=== PATIENT | male | born 1985 | race Caucasian/White ===

== ENCOUNTER 2022-05-06 17:16 | Emergency (ER) | payer MEDICARE, MEDICAID, SELFPAY ==
[2022-05-06 17:26] VITALS: BP 148/91; BP 155/83; PULSE 80; PULSE 81; RESP 20; TEMP 37.1; O2SAT 96; O2SAT 97; BMI 29.8
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
--- NOTE | 2022-05-06 18:26 | PHA.MEDREC ---
Pharmacy Consult ? Medication Reconciliation Pharmacy has completed the medication reconciliation. Pt able to clarify divalproex dosing; list at bedside but seems to be outdated vs claim history and pt knowledge.
[2022-05-06 19:34] LABS: MANUAL DIFF FLAG NO
[2022-05-06 19:35] LABS: Basophils Percent Auto 0.4 % (0-2); Eosinophils Absolute Auto 0.1 X10*3/uL (0.0-0.4); Hematocrit 41.3 % (42.0-52.0); Hemoglobin 14.1 g/dl (14.0-18.0); Imm Gran Abs Auto 0.03 X10*3/uL (0.00-0.03); Imm Gran Pct Auto 0.5 % (0.0-0.4); Lymphocytes Absolute Auto 1.8 X10*3/uL (1.2-4.9); Lymphocytes Percent Auto 33.2 % (20-40); Mean Corpuscular HGB Conc 34.1 g/dl (31.0-36.0); Mean Corpuscular Hemoglobin 31.5 pg (27.0-33.0); Mean Corpuscular Volume 92.4 fL (80.0-98.0); Mean Platelet Volume 10.1 fL (9.4-12.4); Monocytes Absolute Auto 0.6 X10*3/uL (0.1-1.2); Monocytes Percent Auto 11.2 % (2-11); Neutrophils Absolute Auto 2.9 x10*3/uL (2.0-8.3); Neutrophils Percent Auto 52.7 % (45-73); Platelet Count 167 X10*3/uL (160-400); Red Blood Count 4.47 X10*6/uL (4.60-5.80); Red Cell Distribution Width 11.9 % (11.0-16.0); White Blood Count 5.5 X10*3/uL (4.8-10.8)
[2022-05-06 19:41] LABS: Appearance Urine CLEAR; Color Urine YELLOW; Glucose Urine UA NEG (NEG); Leukocyte Esterase Urine NEG (NEG); Nitrite Urine NEG (NEG); Specific Gravity - Urine 1.015 (1.005-1.025); UACC Culture Trigger NO; Urine Blood TRACE (NEG); Urine Ketones NEG (NEG); Urine Protein NEG (NEG-TRACE)
[2022-05-06 19:53] LABS: Bacteria Urine TRACE /LPF; RBC Urine 0-2 /HPF (0); WBC Urine 0 /HPF (0-4)
[2022-05-06 19:58] LABS: Alanine Aminotransferase 60 U/L (0-40); Albumin Level 4.4 g/dL (3.5-5.0); Alkaline Phosphatase 54 U/L (39-117); Anion Gap 15 (12-20); Aspartate Amino Transferase 50 U/L (5-37); Bilirubin Total < 0.2 mg/dL (0.0-1.0); Blood Urea Nitrogen 12 mg/dL (9-16); Calcium 9.6 mg/dL (8.4-10.2); Carbon Dioxide 25 mmol/L (22-29); Chloride 105 mmol/L (96-108); Creatinine Clr Calc Pharmacy 158.6; Estimated Glomerular Filt Rate > 60; Ethanol < 10 mg/dL; Glucose Random 112 mg/dL (60-115); Potassium 4.7 mmol/L (3.3-5.1); Sodium 140 mmol/L (135-145); Total Protein 7.4 g/dL (6.5-8.0)
[2022-05-06 20:03] LABS: Amphetamine Screen Urine Not Detected (Not Detect); Barbiturates, Urine Not Detected (Not Detect); Benzodiazepines Screen Urine Not Detected (Not Detect); Cannabinoid Screen Urine Not Detected (Not Detect); Cocaine Screen Urine Not Detected (Not Detect); Fentanyl, urine Not Detected (Not Detect); Opiate Screen Urine Not Detected (Not Detect); Phencyclidine Screen Urine Not Detected (Not Detect)
[2022-05-06 20:06] LABS: COVID-19 Test Negative (Negative)
[2022-05-06 21:59] VITALS: BP 113/75; PULSE 74; RESP 16; TEMP 36.7; O2SAT 96
--- NOTE | 2022-05-07 01:02 | PC.NURSE ---
KIANAN @ bedside for eval.
[2022-05-07] MEDS: Omeprazole 20 MG CAPSULE.DR PO (05:57)
[2022-05-07 06:01] VITALS: BP 114/71; PULSE 68; RESP 18; O2SAT 93
[2022-05-07] MEDS: Multivitamin TABLET 1 TAB PO (08:26)
[2022-05-07] MEDS: Divalproex Sodium 500 MG TABLET.DR PO (08:26)
[2022-05-07 08:31] VITALS: BP 140/98; PULSE 80; RESP 18; O2SAT 99
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
--- NOTE | 2022-05-07 09:06 | PC.NURSE ---
[facility] at bedside
[2022-05-07] MEDS: hydrOXYzine HCL 50 MG TABLET PO (09:25)
--- NOTE | 2022-05-07 11:36 | PC.NURSE ---
[facility] staff here to transport pt home however pt yelling, combative and aggressive to hospital staff demanding to receive mental health despite plan put in place by [facility]. Security staff, ed staff and house mover supervisor to bedside. Pt to be moved to POD
--- NOTE | 2022-05-07 11:58 | PC.NURSE ---
patient aunt/guardian called, she is working to have patient be moved from his current long term and would like to be contacted with any decisions regarding dispo for patient. her phone # is [phone]
[2022-05-07 12:10] VITALS: BP 115/81; PULSE 73; RESP 16; TEMP 36.4; O2SAT 97
[2022-05-07] MEDS: clonazePAM 0.5 MG TABLET PO ×2 (12:43→18:59)
--- NOTE | 2022-05-07 12:53 | MHC.CARE ---
CARE Team was informed Pt refused to be discharged with his long term staff after being assessed by [facility] Crisis. Pt became escalated and required staff redirection. Pt was brought back into the behavioral health pod. CARE Team and Pt processed the events in the main ED. Pt initially expressed frustration then was able to explain that he does not like were he currently resides and wants an alternative placement. CARE Team and Pt discussed the limitations of external DDS placements from the ED or inpatient psychiatric units. Pt was receptive to this information and reflective regarding the need to work with staff to achieve these goals. Pt notably made some proactive statements though when no reaction was given Pt continued to appropriately engage with t/w. CARE Team spoke with Carrie Esposito [facility] [phone] who received instructions by Rosemary Olsen [facility] area attendant to not allow Pt to return to the long term today. T/w informed her Pt is agreeable to return and was able to process events that occurred. Carrie continued to state that he is not able to return. Carrie expressed concerned regarding ongoing outpatient dynamics impacting Pt to return today; mother being sick and underlying mental health issues. [facility] is requesting a treatment meeting for the Pt with t/w. T/w declined for involvement due appropriateness to be able to participate in a ongoing way due to our role as a Crisis Team. CARE Team informed Carrie that a [facility] report will be filed at this time as Pt is medically and psychiatrically cleared for discharge. CARE Team informed DEANN Olmstead. Plan for Pt to board in the ED overnight as Pts long term is refusing to accept Pt today.
--- NOTE | 2022-05-07 13:16 | MHC.CARE ---
[facility] Report # [id number]
--- NOTE | 2022-05-07 15:59 | MHC.CARE ---
CARE team contacted [facility] to request a copy of crisis evaluation and mental status update.
[2022-05-07 19:00] VITALS: BP 136/84; PULSE 73; RESP 20; TEMP 36.1; O2SAT 99
[2022-05-07] MEDS: clonazePAM 1 MG TABLET PO (19:46)
[2022-05-07] MEDS: OLANZapine 10 MG TABLET PO (19:46)
[2022-05-07] MEDS: Divalproex Sodium 500 MG TABLET.DR 1000 MG PO (19:46)
[2022-05-07] MEDS: Acetaminophen 325 MG TABLET 650 MG PO (21:55)
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
[2022-05-08] MEDS: Omeprazole 20 MG CAPSULE.DR PO (07:12)
[2022-05-08 08:29] VITALS: BP 132/77; PULSE 76; RESP 16; O2SAT 97
[2022-05-08] MEDS: Divalproex Sodium 500 MG TABLET.DR PO (08:40)
[2022-05-08] MEDS: Multivitamin TABLET 1 TAB PO (08:40)
--- NOTE | 2022-05-08 09:07 | MHC.CARE ---
CARE Team spoke with Carrie Esposito from [facility] who will follow up with the CARE Team by early afternoon regarding plan for Pt. Carrie reported they are attempting to schedule a treatment meeting for today. Carrie will update CARE Team by early afternoon.
--- NOTE | 2022-05-08 10:43 | PC.NURSE ---
PT HAS BEEN CALM AND COOPERATIVE THIS MORNING, TOLERATED MORNING MEDICATIONS AND BREAKFAST
[2022-05-08 13:43] LABS: Ammonia 27 umol/L (13-55)
[2022-05-08 15:46] VITALS: BP 126/82; PULSE 76; RESP 18; TEMP 36.3; O2SAT 95
--- NOTE | 2022-05-08 16:35 | PC.NURSE ---
Patients prescriber Cassidy Berry, PASCUAL from [facility] reached out stating concern that she is concerned that if discharged the patient may harm himself or someone else. States the patient has been acting off his baseline recently. She asked if we can add a different medication to his medications. Dr. Grant and care team notified about the phone call from [facility].
--- NOTE | 2022-05-08 16:44 | MHC.CARE ---
Pt has been re-referred to [facility] for another crisis/level of care evaluation.
--- NOTE | 2022-05-08 18:47 | PC.NURSE ---
[facility] here to re-assess pt
[2022-05-08] MEDS: Divalproex Sodium 500 MG TABLET.DR 1000 MG PO (20:18)
[2022-05-09 05:56] VITALS: RESP 16
--- NOTE | 2022-05-09 07:25 | PC.NURSE ---
patient appears to remain asleep respirations are even and unlabored patient appears in no distress
[2022-05-09 07:49] VITALS: BP 118/76; PULSE 82; RESP 19; TEMP 36.2; O2SAT 96
[2022-05-09] MEDS: Omeprazole 20 MG CAPSULE.DR PO (08:46)
[2022-05-09] MEDS: Multivitamin TABLET 1 TAB PO (08:46)
[2022-05-09] MEDS: Divalproex Sodium 500 MG TABLET.DR PO (08:47)
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
[2022-05-09] MEDS: QUEtiapine Fumarate 50 MG TABLET PO ×3 (12:10→20:36)
--- NOTE | 2022-05-09 14:44 | PC.NURSE ---
Pt seen this day for individual OT tx this day. Pt presents with calm mood and receptive to engaging in conversation with this insurance writer. Pt is able to recall several healthy coping mechanisms with simple verbal prompt. He names taking a walk , coloring , puzzling , and talking to a counselor rather than escalating and/or acting out. Pt is provided with and receptive to sensory tool, coloring activity, and sticker puzzle. Pt independently engages in coloring activity at conclusion of OT session.
[2022-05-09] MEDS: OLANZapine 5 MG TABLET PO (20:36)
[2022-05-09] MEDS: hydrOXYzine HCL 50 MG TABLET PO (20:36)
[2022-05-09] MEDS: Divalproex Sodium 500 MG TABLET.DR 1000 MG PO (20:36)
[2022-05-10 06:25] VITALS: RESP 16
--- NOTE | 2022-05-10 07:12 | PC.NURSE ---
patient appears to remain at [facility] at present respirations ar eeven and unlabored patient appears in no distress
--- NOTE | 2022-05-10 07:23 | PC.NURSE ---
Patient slept through the night, no distress observed/reported, behavior non concerning at this time but unpredictable, disposition per N is DDS inpatientbed search, VSS, medication compliant, will continue to monitor.
[2022-05-10] MEDS: Multivitamin TABLET 1 TAB PO (08:19)
[2022-05-10] MEDS: Omeprazole 20 MG CAPSULE.DR PO (08:19)
[2022-05-10] MEDS: QUEtiapine Fumarate 50 MG TABLET PO ×2 (08:19→14:18)
[2022-05-10] MEDS: Divalproex Sodium 500 MG TABLET.DR PO (08:19)
[2022-05-10 11:19] VITALS: BP 103/55; PULSE 79; RESP 17; TEMP 36.6; O2SAT 95
== END 2022-05-10 14:52 ==
PROVIDERS: Physician Assistant; Social Worker; Emergency Provider Emergency Medicine Emergency Medical Services; PCP Internal Medicine
DX: F63.81 Intermittent explosive disorder (principal); F06.30 Mood disorder due to known physiological condition, unspecified; R45.6 Violent behavior; Z86.73 Personal history of transient ischemic attack (TIA), and cerebral infarction without residual deficits; Z20.822 Contact with and (suspected) exposure to COVID-19; Z72.89 Other problems related to lifestyle; Z79.899 Other long term (current) drug therapy
CPT/HCPCS: 36415; 80053; 80307; 81001; 82077; 82140; 85025; 87635; 99285

== ENCOUNTER 2023-06-04 13:48 | Emergency (ER) | payer MEDICARE, MEDICAID, SELFPAY ==
--- NOTE | 2023-06-04 14:40 | ED_ITS ---
HPI - Allergic Reaction General Chief complaint: Allergic Reaction Stated complaint: BEE STING, EPI PEN ADMIN PER EMS Time Seen by Provider: 06/04/23 14:08 Source: patient and other Mode of arrival: EMS History of Present Illness HPI narrative: 38-year-old male was [facility] after he sustained a bee sting to his left pinky, the facility administered an EpiPen at 13:30, patient denies any complaints of shortness of breath/scratchy throat/lip or tongue swelling. Related Data Home Medications Medication Instructions Recorded Confirmed benzoyl peroxide 5 % topical gel 1 ea topical BID PRN Acne flare 05/06/22 05/06/22 (Acne Medication) divalproex 500 mg tablet,delayed 1 tab PO DAILY 05/06/22 05/06/22 release divalproex 500 mg tablet,delayed 2 tab PO BEDTIME 05/06/22 05/06/22 release hydroxyzine HCl 50 mg tablet 1 tab PO Q6H PRN Agitation 05/06/22 05/06/22 multivitamin (One Daily 1 tab PO DAILY 05/06/22 05/06/22 Multivitamin tablet) omeprazole 20 mg capsule,delayed 1 cap PO DAILY@0630 05/06/22 05/06/22 release Previous Rx's Medication Instructions Recorded epinephrine 0.3 mg/0.3 mL 0.3 mg (0.3 mL) IM Q4H PRN 06/04/23 injection, auto-injector (EpiPen anaphylaxis #2 ea 2-Titus) Allergies Allergy/AdvReac Type Severity Reaction Status Date / Time bee pollen [bee stings] AdvReac Hives Verified 05/07/22 13:43 Review of Systems Review of Systems: Pertinent positives and negatives as stated in HPI PMFSH Past Medical History Source: nursing notes reviewed Social History Social History Advance Directives: No Advance Directives Information Provided: No Physical Exam ED Vital Signs: Vital Signs - 24 hr 06/04/23 14:57 Temperature 98.6 F Pulse Rate 89 Respiratory Rate 18 Blood Pressure 146/84 H Pulse Oximetry 95 Oxygen Delivery Method Room Air BMI result Body Mass Index 40.6 VITAL SIGNS: Reviewed. GENERAL: Well developed, well nourished, in no acute distress. HEAD: Normocephalic/atraumatic EYES: PERRLA, EOMI EARS: Ext canals without abnormality NOSE: Nares patent bilateral OROPHARYNX: no oral lesions noted, posterior pharynx clear, no lip/tongue/facial swelling NECK: Supple, no adenopathy LUNGS: No stridor, no tachypnea, no wheeze/rhonchi/rales or increased work of breathing. CARDIOVASCULAR: Regular rate and rhythm without noted murmurs ABDOMEN: Soft, non-tender, non-distended with bowel sounds. MUSCULOSKELETAL: No tenderness, deformities, or effusions noted on gross inspection. EXTREMITIES: No cyanosis, clubbing or edema. SKIN: Inspection of the skin reveals no rashes NEUROLOGIC: Alert and oriented x 2. Strength and sensation to light touch were grossly intact x 4. Medications Administered Discontinued Medications Generic Name Dose Route Start Last Admin Trade Name Freq PRN Reason Stop Dose Admin Diphenhydramine HCl 25 mg 06/04/23 14:40 06/04/23 15:15 Diphenhydramine Hcl 25 Mg Capsule PO 06/04/23 14:41 25 mg ONCE ONE Administration Medical Decision Making Medical Decision Making MDM Narrative: This is a 38-year-old male who presents from a penitentiary after a bee sting to the left pinky with some mild erythema and swelling there is no evidence of anaphylaxis or angioedema, patient did receive an EpiPen at 13:30 and will be observed for 4 hours. The listed allergy to bee stings is hives. Patient will also receive additional 25 mg of Benadryl and be placed on cardiac monitoring. 1735: Patient remains without difficulty breathing, easy respirations, no angioedema or anaphylaxis and is otherwise discharged back to the penitentiary in stable condition. Differential Diagnosis Differential Diagnoses: The differential diagnosis associated with the presentation includes Please see the discussion above Admission/Observation Consideration of admission/observation: Escalation of care including admission/observation considered Please see the discussion above External Record Review External record reviewed: Outpatient record and Prior outpatient labs Critical Care Time Critical Care Time Critical Care Time: Yes Total Critical Care Time: 30 Attestation: I personally attest to this time spent taking care of the patient. Discharge Plan Discharge Clinical Impression: Accidental bee sting Patient Disposition: Xfer Other Instructions: Insect Bite or Sting (ED) Additional Instructions: 1. Resume all home medications as prescribed. 2. A replacement for your EpiPen has been ordered. Return to the ER for any worsening symptoms. Prescriptions: New epinephrine [EpiPen 2-Titus] 0.3 mg/0.3 mL auto-injector 0.3 mg IM Q4H PRN (Reason: anaphylaxis) Qty: 2 0RF No Action multivitamin [One Daily Multivitamin] Tablet 1 tab PO DAILY benzoyl peroxide [Acne Medication] 5 % gel 1 ea topical BID PRN (Reason: Acne flare) Rx Instructions: to face hydroxyzine HCl 50 mg tablet 1 tab PO Q6H PRN (Reason: Agitation) divalproex 500 mg tablet,delayed release (DR/EC) 1 tab PO DAILY divalproex 500 mg tablet,delayed release (DR/EC) 2 tab PO BEDTIME omeprazole 20 mg capsule,delayed release(DR/EC) 1 cap PO DAILY@0630 Referrals: Darien Beasley DO, MD [Primary Care Provider] -
[2023-06-04 14:57] VITALS: BP 146/84; BP 170/72; PULSE 89; PULSE 99; RESP 18; TEMP 37; O2SAT 95; O2SAT 99; BMI 40.6
[2023-06-04] MEDS: diphenhydrAMINE HCL 25 MG CAPSULE PO (15:15)
--- NOTE | 2023-06-04 19:55 | PC.NURSE ---
Patient is eating, talking and drinking with no signs of an exacerbation of allergic reaction. Patient c/o pain in ring finger on left hand where he was stung. looks totally normal not red or swollen. Discharged with store group manager.
== END 2023-06-04 20:14 | disposition other institution (70) ==
PROVIDERS: Emergency Provider Student in an Organized Health Care Education/Training Program; PCP Internal Medicine
DX: T63.441A Toxic effect of venom of bees, accidental (unintentional), initial encounter (principal); Y92.9 Unspecified place or not applicable; M79.642 Pain in left hand; Z79.899 Other long term (current) drug therapy
CPT/HCPCS: 99282; 99283

== ENCOUNTER 2024-02-06 17:14 | Emergency (ER) | payer OTHER, SELFPAY ==
--- NOTE | ~2024-02-06 | CT_ITS ---
EXAMINATION: CT HEAD WITHOUT CONTRAST CLINICAL INFORMATION: Reason for Exam altered mental status, remote hx of TBI COMPARISON: None available. TECHNIQUE: Contiguous axial imaging was performed from the skull base to vertex without intravenous administration of contrast. This CT examination was performed using dose optimization techniques as appropriate, variously including the following: *Automated exposure control *Adjustment of mA and/or kV according to patient size (this includes techniques or standardized protocols for targeted exams where dose is matched to indication/reason for exam; i.e. extremities or head) *Use of iterative reconstruction technique DLP: 735 mGy-cm FINDINGS: There is no evidence of acute intracranial hemorrhage or territorial infarction. No abnormal mass-effect or midline shift is seen. [place] to white matter differentiation is well preserved. No extra-axial fluid collections are identified. The ventricles are normal in size. There is no abnormal attenuation within the brain parenchyma. The osseous structures and soft tissues are normal. The mastoid air cells and visualized portions of the paranasal sinuses are well-aerated. CT/CT head/brain wo IV con IMPRESSION: No acute intracranial pathology.
--- NOTE | ~2024-02-06 | XR_ITS ---
EXAMINATION: XR FOOT, LEFT CLINICAL INFORMATION: Pain COMPARISON: None available. TECHNIQUE: AP, lateral, and oblique views of the left foot. FINDINGS: Partially visualized tibial intramedullary nail with distal screws and suspected healing fracture of the distal tibial shaft. There are fractures of the third through fifth metatarsal necks which are suspected to be subacute/healing as there is some surrounding calcification. Slightly displaced intra-articular fracture at the base to mid shaft of the first proximal phalanx, age-indeterminate. Articular alignment throughout the foot appears maintained. Mild degenerative change of the midfoot. Dorsal soft tissue swelling is noted in the distal foot. XR/XR foot LT min 3V IMPRESSION: 1. Slightly displaced intra-articular fracture at the base to mid shaft of the first proximal phalanx, age-indeterminate and which may be acute. Clinical correlation recommended for acute injury at this site. 2. Fractures of the third through fifth metatarsal necks, suspected to be subacute/healing. Correlation with patient history is recommended.
[2024-02-06 17:23] VITALS: BP 119/72; BP 122/90; PULSE 74; PULSE 83; RESP 16; TEMP 36.6; O2SAT 97; BMI 35.8
--- NOTE | 2024-02-06 17:38 | PC.NURSE ---
patient has paperwork from [facility], patient paperwork states that patient has left walking boot due to injury at another inpatient psych facility. [facility] staff stated patient is at his baseline mentally.
[2024-02-06 18:30] VITALS: BP 110/56; PULSE 74; RESP 18; TEMP 36.6; O2SAT 95
--- OUTSIDE RECORDS SUMMARY | 2024-02-06 19:05 | XMS_ITS | Continuity of Care Document ---
Author Organization [facility] ter Address [address] [place] [address]- Care Team Providers Care Gusset Maker Name Role Phone Darien Beasley DO Primary Care Physician Encounter [facility] [place] Date(s): 09/05/22 - 09/06/[address] [address]- Encounter Diagnosis Homicidal thoughts(Final) - 09/05/22 Discharge Disposition: A-D/C Home Attending Physician: Latasha Zimmerman MD Admitting Physician: Latasha Zimmerman MD Referring Physician: Not on Staff, Referring MD Allergies, Adverse Reactions, Alerts Substance Reaction Severity Status Bee Stings Active Immunizations Given and Recorded Vaccine Date Status Refusal Reason SARS-CoV-2 (COVID-19) mRNA BNT-162b2 vac 08/16/21 Recorded SARS-CoV-2 (COVID-19) mRNA BNT-162b2 vac 12/01/20 Recorded SARS-CoV-2 (COVID-19) mRNA BNT-162b2 vac 11/10/20 Recorded Medications acetaminophen 325 mg oral tablet 975 mg, By Mouth, 3 times a day, Refills 0, Maintenance, 05/25/22 13:52:00 EDT, Partial fill upon patient request if the prescription is for a schedule II opioid drug. Start Date: 05/25/22 Status: Ordered benzoyl peroxide 5% topical gel 1 application, Topically, 2 times a day, Maintenance, 02/15/22 11:18:00 EDT, Gel, ; Start Date: 02/15/22 Status: Ordered bisacodyl 10 mg rectal suppository 1 supp = 10 mg, Rectally, Daily, PRN Constipation, 0 Refills, Maintenance, 05/25/22 13:52:00 EDT, Suppository, Partial fill upon patient request if the prescription is for a schedule II opioid drug. Start Date: 05/25/22 Status: Ordered cholecalciferol 50 mcg (2000 intl units) oral tablet, chewable 1 tablet = 50 mcg, By Mouth, Daily, # 30 tablet, 0 Refills, Maintenance, 05/25/22 13:54:00 EDT, Partial fill upon patient request if the prescription is for a schedule II opioid drug. Start Date: 05/25/22 Status: Ordered clonazePAM 0.5 mg oral tablet 0.5 tablet = 0.25 mg, By Mouth, 2 times a day, 0 Refills, Maintenance, 05/25/22 13:54:00 EDT, Tablet, Partial fill upon patient request if the prescription is for a schedule II opioid drug. Start Date: 05/25/22 Status: Ordered clonazePAM 0.5 mg oral tablet 0.5 tablet = 0.25 mg, By Mouth, 2 times a day, # 3 tablet, 0 Refills, Maintenance, 05/25/22 14:19:00 EDT, Tablet, Partial fill upon patient request if the prescription is for a schedule II opioid drug. Start Date: 05/25/22 Stop Date: 05/28/22 Status: Ordered divalproex sodium 500 mg oral enteric coated tablet = 1,000 mg, By Mouth, Daily at bedtime, 0 Refills, Maintenance, 05/25/22 13:51:00 EDT, Tablet, Partial fill upon patient request if the prescription is for a schedule II opioid drug. Start Date: 05/25/22 Status: Ordered divalproex sodium 500 mg oral enteric coated tablet = 500 mg, By Mouth, Daily in AM, 0 Refills, Maintenance, 05/25/22 13:51:00 EDT, Tablet, Partial fill upon patient request if the prescription is for a schedule II opioid drug. Start Date: 05/25/22 Status: Ordered Enoxaparin 0.4 mL = 40 mg, Subcutaneous Injection, Every 24 hours, 0 Refills, Maintenance, 05/25/22 13:56:00 EDT, Injection, Partial fill upon patient request if the prescription is for a schedule II opioid drug. Start Date: 05/25/22 Status: Ordered EpiPen 2-Titus 0.3 mg injectable kit = 0.3 mg, Intramuscular, Once, PRN NEEDED, BEE STINGS, Maintenance, 02/15/22 11:27:00 EDT, ; Start Date: 02/15/22 Status: Ordered LaMICtal 200 mg oral tablet 1 tablet = 200 mg, By Mouth, 2 times a day, # 60 tablet, 0 Refills, Maintenance, 03/21/22 8:44:00 EDT, Tablet, [facility], Partial fill upon patient request if the prescription is for a schedule II opioid drug., 174, cm, 03/21/22 8:33:00 EDT, Height,... Start Date: 03/21/22 Status: Ordered Milk of Magnesia Liquid 30 mL, By Mouth, 2 times a day, PRN Constipation, 0 Refills, Maintenance, 05/25/22 13:56:00 EDT, Suspension, Partial fill upon patient request if the prescription is for a schedule II opioid drug. Start Date: 05/25/22 Status: Ordered multivitamin Multiple Vitamins oral tablet 1 tablet, By Mouth, Daily, # 30 tablet, 0 Refills, Maintenance, 05/25/22 13:53:00 EDT, Tablet, Partial fill upon patient request if the prescription is for a schedule II opioid drug. Start Date: 05/25/22 Status: Ordered PriLOSEC OTC 20 mg oral delayed release tablet 1 tablet = 20 mg, By Mouth, Daily, # 30 tablet, 0 Refills, Maintenance, 03/21/22 8:44:00 EDT, EC Tablet, [facility], Partial fill upon patient request if the prescription is for a schedule II opioid drug., 174, cm, 03/21/22 8:33:00 EDT, Height, 91.7,... Start Date: 03/21/22 Status: Ordered Senna 8.6 mg oral tablet 17.2 mg, 2, tablet, By Mouth, Daily, Refills 0, Maintenance, 05/25/22 13:52:00 EDT, Tablet, Partialfill upon patient request if the prescription is for a schedule II opioid drug. Start Date: 05/25/22 Status: Ordered SEROquel 25 mg oral tablet 50 mg, 2, tablet, By Mouth, Daily, Refills 0, Maintenance, 05/25/22 13:54:00 EDT, Partial fill uponpatient request if the prescription is for a schedule II opioid drug. Start Date: 05/25/22 Status: Ordered Triple Antibiotic topical ointment 1 application, Topically, 2 times a day, PRN as needed, Maintenance, 02/15/22 11:26:00 EDT, Ointment, ; Start Date: 02/15/22 Status: Ordered Problem List Condition Confirmation Course Effective Dates Status Health St atus Informant Major depression Confirmed Active Obese class I Confirmed Active Traumatic brain injury Confirmed Active Vital Signs Most recent to oldest [Reference Range]: 1 2 3 Oxygen Saturation [94-100 %] 97 % (09/06/22 3:27 PM) 97 % (09/06/22 1:07 PM) 95 % (09/06/22 5:22 AM) Pulse Rate [55-90 bpm] 80 bpm (09/06/22 3:27 PM) 88 bpm (09/06/22 1:07 PM) 97 bpm *H* (09/06/22 5:22 AM) Blood Pressure [90-138/55-84 mm Hg] 127/77mm Hg (09/06/22 3:27 PM) 128/77mm Hg (09/06/22 1:07 PM) 124/64mm Hg (09/06/22 5:22 AM) Respiratory Rate [16-30 br/min] 16 br/min (09/06/22 3:27 PM) 19 br/min (09/06/22 1:07 PM) 17 br/min (09/06/22 5:22 AM) Temperature [96.8-100.4 DegF] 97.8 DegF (09/06/22 3:27 PM) 98.7 DegF (09/06/22 1:07 PM) 98.5 DegF (09/06/22 5:22 AM) Mode of Delivery (Oxygen) Room air (09/06/22 3:27 PM) Room air (09/06/22 1:07 PM) Room air (09/06/22 5:22 AM) Blood pressure sites Arm, left (09/06/22 3:27 PM) Arm, right (09/05/22 5:24 PM) Arm, right (09/05/22 1:46 PM) Temperature Route Oral (09/06/22 3:27 PM) Oral (09/06/22 1:07 PM) Oral (09/06/22 5:22 AM) Social History Social History Type Response Tobacco Other: patient denie s use. Sex Patient Care team information Care Team Personnel Name: Erinn Bowen RN Position: [facility] RN Member Role: Primary Care Nurse Name: Yamileth Lopez RN Position: [facility] RN Member Role: Primary Care Nurse Name: Irina Baugh RN Position: [facility] RN Member Role: Primary Care Nurse Name: Darien Beasley DO Position: [facility] Physician (General Medicine) Member Role: PCP Address: Address: [address] [place], [place] [id number] [place] [address]- Name: Brooke Cadena RN Position: [facility] RN Member Role: Primary Care Nurse Name: Sadia Tirado RN Position: [facility] RN Member Role: Primary Care Nurse Name: Kong Duke RN Position: [facility] RN Member Role: Primary Care Nurse Name: Yamini Molina RN Position: [facility] RN Member Role: Primary Care Nurse Name: Isabella Drake RN Position: [facility] RN Supv Member Role: Primary Care Nurse Name: Jamila Larkin RN Position: [facility] RN Member Role: Primary Care Nurse Name: Justin Crocker RN Position: [facility] RN Member Role: Primary Care Nurse Name: Natahn Roper RN Position: [facility] RN Member Role: Primary Care Nurse Name: Yamini Chavez RN Position: [facility] RN Member Role: Primary Care Nurse Name: Michelle Grayson RN Position: [facility] RN Member Role: Primary Care [facility] Attending Position: [facility] ED Attendings Patient Name: Radha Newberry RN Position: [facility] ED RN W/OE and Tasks Member Role: Patient Care Provider Name: Garrick Salgado Position: [facility] ED [facility] Member Role: Livestock Counter Name: Latasha Zimmerman MD Position: [facility] ED Medicine MD Member Role: ED Attending Physician Address: Address: [address] [place] [address] [place] [address]-
--- OUTSIDE RECORDS SUMMARY | 2024-02-06 19:05 | XMS_ITS | Continuity of Care Document ---
Author Organization [facility] ter Address [address] [place] [address]- Care Team Providers Care Front End Engineer Name Role Phone Darien Beasley DO Primary Care Physician Encounter [facility] [place] Date(s): 10/19/22 - 10/20/[address] [address]- Encounter Diagnosis Agitation(Final) - 10/19/22 Discharge Disposition: A-D/C Home Attending Physician: Geena Buck DO Admitting Physician: Geena Buck DO Referring Physician: Not on Staff, Referring MD [...] St at[facility] Informant Major depression Confirmed Active Traumatic brain injury Confirmed Active Vital Signs Most recent to oldest [Reference Range]: 1 2 3 Oxygen Saturation [94-100 %] 96 % (10/20/22 12:32 PM) 97 % (10/20/22 5:35 AM) 97 % (10/19/22 9:42 PM) Pulse Rate [55-90 bpm] 75 bpm (10/20/22 12:32 PM) 78 bpm (10/20/22 5:35 AM) 77 bpm (10/19/22 9:42 PM) Blood Pressure [90-138/55-84 mm Hg] 109/68mm Hg (10/20/22 12:32 PM) 133/88mm Hg (10/20/22 5:35 AM) 131/80mm Hg (10/19/22 9:42 PM) Respiratory Rate [16-30 br/min] 18 br/min (10/20/22 12:36 PM) 18 br/min (10/20/22 12:32 PM) 18 br/min (10/20/22 5:35 AM) Temperature [96.8-100.4 DegF] 98.1 DegF (10/20/22 12:32 PM) 98.2 DegF (10/20/22 5:35 AM) 98.1 DegF (10/19/22 5:52 PM) Mode of Delivery (Oxygen) Room air (10/20/22 12:32 PM) Room air (10/20/22 5:35 AM) Room air (10/19/22 9:42 PM) Blood pressure sites Arm, left (10/20/22 12:32 PM) Arm, left (10/19/22 5:52 PM) Temperature Route Oral (10/20/22 12:32 PM) Oral (10/20/22 5:35 AM) Oral (10/19/22 5:52 PM) Social History Social History Type Response Tobacco Other: patient denie s use. Sex Patient Care team information Care Team Personnel Name: Erinn Bowen RN Position: [facility] RN Member Role: Primary Care Nurse Name: Yamileth Lopez RN Position: [facility] RN Member Role: Primary Care Nurse Name: Irina Baugh RN Position: [facility] RN Member Role: Primary Care Nurse Name: Darien Beasley DO Position: [facility] Physician (General Medicine) Member Role: PCP Address: Address: [address] [place] [address] [address] [place] [address]- [place] Name: Sadia Tirado RN Position: [facility] RN Member Role: Primary Care Nurse Name: Kong Duke RN Position: [facility] RN Member Role: Primary Care Nurse Name: Yamini Molina RN Position: [facility] RN Member Role: Primary Care Nurse Name: Isabella Drake RN Position: [facility] RN Supchris Member Role: Primary Care Nurse Name: Jamila Larkin RN Position: [facility] RN Member Role: Primary Care Nurse Name: Justin Crocker RN Position: [facility] RN Member Role: Primary Care Nurse Name: Nathan Roper RN Position: [facility] RN Member Role: Primary Care Nurse Name: Yamini Chavez RN Position: [facility] RN Member Role: Primary Care Nurse Name: Michelle Grayson RN Position: [facility] RN Member Role: Primary Care Nurse [facility] Attending Position: [facility] ED Attendings Patient Name: Carline Hennessy Position: [facility] ED [facility] Member Role: Reformatory Attendant Name: Geena Buck DO Position: [facility] ED Medicine MD Member Role: Admitting Physician Address: Address: [address] [place] [address] [place] [address]- [place] Name: Leslee Ventura RN Position: [facility] ED RN W/OE and Tasks Member Role: Patient Care Provider
--- OUTSIDE RECORDS SUMMARY | 2024-02-06 19:06 | XMS_ITS | Continuity of Care Document ---
Author Organization [facility] ter Address [address] [place] [address]- Care Team Providers Care Driller Multiple Spindle Name Role Phone Darien Beasley DO Primary Care Physician Encounter [facility] [place] Date(s): 05/20/20 - 05/21/[address] [address] [facility] Discharge Disposition: A-D/C Walkout Attending Physician: Not on Staff, Attending MD Admitting Physician: Not on Staff, Admitting MD Referring Physician: Not on Staff, Referring MD Allergies, Adverse Reactions, Alerts Substance Reaction Severity Status Bee Stings Active Medications Depakote 125 mg oral enteric coated tablet 1 tablet = 125 mg, By Mouth, 3 times a day, 0 Refills, Maintenance, 05/20/20 21:33:00 EDT Start Date: 05/20/20 Status: Ordered LaMICtal 200 mg oral tablet 1 tablet = 200 mg, By Mouth, 2 times a day, # 180 tablet, 0 Refills, Maintenance, 05/20/20 21:33:00EDT, Tablet Start Date: 05/20/20 Status: Ordered PriLOSEC OTC 20 mg oral delayed release tablet 1 tablet = 20 mg, By Mouth, Daily, # 30 tablet, 0 Refills, Maintenance, 05/20/20 21:32:00 EDT, CR Tablet Start Date: 05/20/20 Status: Ordered Vital Signs Most recent to oldest [Reference Range]: 1 Oxygen Saturation [94-100 %] 98 % (05/20/20 8:30 PM) Pulse Rate [55-90 bpm] 57 bpm (05/20/20 8:30 PM) Blood Pressure [90-138/55-84 mm Hg] 153/ 96mm Hg *H* (05/20/20 8:30 PM) Respiratory Rate [16-30 br/min] 18 br/mi n (05/20/20 8:30 PM) Temperature [96.8-100.4 DegF] 98.6 DegF (05/20/20 8:30 PM) Mode of Delivery (Oxygen) Room air (05/20/20 8:30 PM) Blood pressure sites Arm, right (05/20/20 8:30 PM) Temperature Route Oral (05/20/20 8:30 PM) Social History Social History Type Response Smoking Status Never (less than 100 in lifetime) entered on: 05/20/20 Sex
--- OUTSIDE RECORDS SUMMARY | 2024-02-06 19:06 | XMS_ITS | Continuity of Care Document ---
Author Organization [facility] ter Address [address] [place] [address]- Care Team Providers Care Aids Nurse Name Role Phone Darien Beasley DO Primary Care Physician Encounter [facility] [place] Date(s): 05/22/22 - 05/25/[address] [address] Encounter Diagnosis Spiral fracture of shaft of tibia(Final) - 05/22/22 Closed displaced spiral fracture of shaft of left tibia(Discharge Diagnosis) - 05/24/22 Spiral fracture of shaft of fibula(Final) - 05/22/22 Discharge Disposition: A-D/C Home Attending Physician: Justo Ahumada MD Admitting Physician: Justo Ahumada MD Referring Physician: Not on Staff, Referring [...] Date: 02/15/22 Status: Ordered Problem List Condition Effective Dates Status Health Status Inform ant Major depression(Confirmed) Active Obese class I(Confirmed) Active Traumatic brain injury(Confirmed) Active Diagnosis Diagnosis Type Effective Dates Health Status Cl inical Service Informant Closed displaced spiral fracture of shaft of left tibia Discharge Diagnosis 05/24/22 Non-Specified Results Radiology Reports * Exam Date Time Procedure Performing Provider Status 05/23/22 11:58 AM C-Arm > 1 Hour Juana Chapa; Auth (Verified) Notes: (C-Arm > 1 Hour) Reason For Exam: Left Tibial Nail RESULT: C-Arm > 1 Hour C-Arm > 1 Hour INDICATION: Reason: Left Tibial Nail COMPARISONS: None TECHNIQUE: Fluoroscopy support was provided. There was no radiologist in attendance. FLUOROSCOPY TIME: 1 minute, 17 seconds TECHNOLOGIST TIME: 1 hour, 10 minutes FINDINGS: Fluoroscopy support was provided. There was no radiologist in attendance. IMPRESSION: See above. WSN: [id number] Ordering Physician: Justo Ahumada Dictated By: Chacho Wang MD Dictated Date/Time: 05/24/22 3:16 pm Reviewed By: Chacho Wang MD Signed By: Chacho Wang MD Signed Date/Time: 05/24/22 3:16 pm Transcribed By: EZEKIEL Transcribed Date/Time: 05/23/22 6:43 pm * Exam Date Time Procedure Performing Provider Status 05/23/22 11:58 AM Tibia/Fibula 2 Views Left Juana Chapa; Auth (Verified) Notes: (Tibia/Fibula 2 Views Left) Reason For Exam: Left tibial Nail RESULT: Tibia/Fibula 2 Views Left Tibia/Fibula 2 Views Left Reason: Left tibial Nail COMPARISON: 05/22/2022. FINDINGS: Status post open reduction and internal fixation of distal tibial fracture with an intramedullary yane and proximal and distal transverse screws. Again demonstrated is a proximal fibular fracture. 9 images were obtained. Fluoroscopy was utilized for 1.4 minutes. IMPRESSION: Fluoroscopic assistance for open reduction and internal fixation. WSN: [id number] Ordering Physician: Justo Ahumada Dictated By: Phuong Cole MD Dictated Date/Time: 05/23/22 5:46 pm Reviewed By: Phuong Cole MD Signed By: Phuong Cole MD Signed Date/Time: 05/23/22 5:46 pm Transcribed By: EZEKIEL Transcribed Date/Time: 05/23/22 5:44 pm Vital Signs Most recent to oldest [Reference Range]: 1 2 3 Oxygen Saturation [94-100 %] 96 % (05/25/22 11:00 AM) 98 % (05/25/22 8:00 AM) 96 % (05/25/22 3:00 AM) Pulse Rate [55-90 bpm] 86 bpm (05/25/22 11:00 AM) 90 bpm (05/25/22 8:00 AM) 74 bpm (05/25/22 3:00 AM) Blood Pressure [90-138/55-84 mm Hg] 139/65mm Hg *H* (05/25/22 11:00 AM) 142/67mm Hg *H* (05/25/22 8:00 AM) 126/68mm Hg (05/25/22 3:00 AM) Respiratory Rate [16-30 br/min] 18 br/min (05/25/22 11:00 AM) 18 br/min (05/25/22 8:00 AM) 18 br/min (05/25/22 3:00 AM) Temperature [96.8-100.4 DegF] 98.3 DegF (05/25/22 11:00 AM) 99.0 DegF (05/25/22 8:00 AM) 98.3 DegF (05/25/22 3:00 AM) Liters per Minute 2 L/min (05/23/22 1:15 PM) 4 L/min (05/23/22 12:45 PM) 10 L/min (05/23/22 12:15 PM) Mode of Delivery (Oxygen) Room air (05/25/22 11:00 AM) Room air (05/25/22 8:00 AM) Room air (05/25/22 3:00 AM) Blood pressure sites Arm, right (05/25/22 11:00 AM) Arm, right (05/25/22 8:00 AM) Arm, right (05/25/22 3:00 AM) Temperature Route Oral (05/25/22 11:00 AM) Oral (05/25/22 8:00 AM) Oral (05/25/22 3:00 AM) Social History Social History Type Response Tobacco Other: patient denie s use. Sex
--- OUTSIDE RECORDS SUMMARY | 2024-02-06 19:06 | XMS_ITS | Continuity of Care Document ---
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 DETECTED (07/06/23) Glucose Level:??115 mg/dL??High (07/06/23) Hct: 42.2 % (07/06/23) Hgb: 14.2 Gm/dL (07/06/23) Imm Gran: 0.7 % (07/06/23) Lymph %: 35.2 % (07/06/23) MCH: 32.1 pg (07/06/23) MCHC: 33.6 g/dL (07/06/23) MCV:??95.3 femtoliters??High (07/06/23) [place] %:??12.6 %??High (07/06/23) MPV: 10.4 femtoliters (07/06/23) Neut %: 49.8 % (07/06/23) Nucleated RBC (Automated): 0 #/100 WBC'S (07/06/23) Opiate Screen, Urine: NONE DETECTED (07/06/23) Platelet Count: 162 k/mm3 (07/06/23) Potassium: 4.9 mmol/L (07/06/23) RBC:??4.43 m/mm3??Low (07/06/23) RDW-SD: 42.4 femtoliters (07/06/23) Sodium: 139 mmol/L (07/06/23) TSH: 3.3 uIU/mL (07/06/23) Valproic Level: 73 mg/L (07/06/23) WBC: 6 k/mm3 (07/06/23) Diagnostic Results Result type:?Knee 1 or 2 Views Left Result date:?July 06, 2023 20:02 EDT Result status:?Auth (Verified) Result title:?XR Knee 1 or 2 Views Left Performed by:?Phuong Cole MD on July 06, 2023 20:08 EDT Verified by:?Phuong Cole MD on July 06, 2023 20:08 EDT Encounter info:?[id number], [facility], Emergency, 07/06/2023 -? * Final Report * ?? Reason For Exam with Pain;Trauma ?? RESULT: Knee 1 or 2 Views Left Knee 1 or 2 Views Left, 2 views ?? Hx of Present Illness: From long term, at the [facility] this AM, soiled his pants, now with SI- wants to stab himself, depressed. and HI; Reason: Trauma; with Pain; Clinical Question(s): Fracture; OrderComment: ? COMPARISON: 09/25/2022. ?? FINDINGS: ?? There is no evidence of acute fracture or dislocation. Internal fixation hardware in the tibia. ?? There are multiple corticated calcifications at the region of the patellar ligament with adjacent soft tissue swelling. ?? No evidence of joint effusion. ?? IMPRESSION:? There are multiple corticated chronic calcifications at the region of the patellar ligament with adjacent soft tissue swelling. Clinical correlation is recommended. WSN: [id number] ? Ordering Physician: Alicia Cr ?? Signature Line Dictated By: ?Phuong Cole MD Dictated Date/Time: ?07/06/23 8:08 pm Reviewed By: ?Phuong Cole MD Signed By: ? Phuong Cole MD Signed Date/Time: ? 07/06/23 8:08 pm Transcribed By: ? CSB Transcribed Date/Time: ?07/06/23 8:06 pm ? Knee 1 or 2 Views Left This document has an image ? Result type:?Tibia/Fibula 2 Views Left Result date:?July 06, 2023 20:02 EDT Result status:?Auth (Verified) Result title:?XR Tibia/Fibula 2 Views Left Performed by:?Phuong Cole MD on July 06, 2023 20:05 EDT Verified by:?Phuong Cole MD on July 06, 2023 20:05 EDT Encounter info:?[id number], [facility], Emergency, 07/06/2023 -? * Final Report * ?? Reason For Exam with Pain;Trauma ?? RESULT: Tibia/Fibula 2 Views Left Tibia/Fibula 2 Views Left ?? Hx of Present Illness: From long term, at the [facility] this AM, soiled his pants, now with SI- wants to stab himself, depressed. and HI; Reason: Trauma; with Pain; Clinical Question(s): Fracture ? COMPARISON: 09/25/2022. ?? FINDINGS: ?? Again demonstrated is a healed distal tibial fracture with an intramammary yane and proximal and distal transverse screws. There is a healed proximal fibular shaft fracture. ?? Visualized joints are normal. ?? Normal soft tissues. ?? IMPRESSION:? Healed tibia and fibular fractures without evidence of acute pathology. WSN: [id number] ? Ordering Physician: Alicia Cr ?? Signature Line Dictated By: ?Phuong Cole MD Dictated Date/Time: ?07/06/23 8:05 pm Reviewed By: ?Phuong Cole MD Signed By: ? Phuong Cole MD Signed Date/Time: ? 07/06/23 8:05 pm Transcribed By: ? CSB Transcribed Date/Time: ?07/06/23 8:04 pm ? Tibia/Fibula 2 Views Left This document has an image ?? Patient Care team information Care Team Personnel Name: Erinn Bowen RN Position: S RN Member Role: Primary Care Nurse Name: Yamileth Lopez RN Position: S RN Member Role: Primary Care Nurse Name: Irina Baugh RN Position: S RN Member Role: Primary Care Nurse Name: Darien Beasley DO Position: S Physician - Primary Care Member Role: PCP Address: Address: [address] [place] [address] [address] [place] [address]- [place] Name: Sadia Tirado RN Position: [facility] RN Member Role: Primary Care Nurse Name: Yamini Molina RN Position: [facility] RN Member Role: Primary Care Nurse Name: Isabella Drake RN Position: S RN Member Role: Primary Care Nurse Name: Nathan Roper RN Position: [facility] RN Member Role: Primary Care Nurse Name: Yamini Chavez RN Position: [facility] RN Member Role: Primary Care Nurse Name: Michelle Grayson RN Position: [facility] RN Member Role: Primary Care Nurse [facility] Attending Position: [facility] ED Attendings Patient Name: Lincoln Rollins MD Position: [facility] Resident Member Role: Admitting Physician Address: Address: [address] [place] [address] [place] [address]- Name: Diya Armendariz RN Position: [facility] ED RN W/OE and Tasks Member Role: Patient Care Provider
--- OUTSIDE RECORDS SUMMARY | 2024-02-06 19:06 | XMS_ITS | Continuity of Care Document ---
Author Organization [facility] Address [address] [place] [address]- Care Team Providers Care Dial Brusher Name Role Phone Darien Beasley DO Primary Care Physician [place] [facility] [place] - 09/25/[address] [address]- Encounter Diagnosis Leg pain(Final) - 09/25/22 Discharge Disposition: Discharged to Hospice-Home (routine care Attending Physician: Georgia Lopez MD Admitting Physician: Georgia Lopez MD Referring Physician: Not on Staff, Referring [...] Exam Date Time Procedure Performing Provider Status 09/25/22 7:12 PM Ankle Min 3 Views Left Kaylah Vega; Eric (Verified) Notes: (Ankle Min 3 Views Left) Reason For Exam: Pain RESULT: Ankle Min 3 Views Left Tibia/Fibula 2 Views Left, Foot Min 3 Views Left, Ankle Min 3 Views Left Hx of Present Illness: pt from jail, was frustrated with staff and went to bathroom on floor for retaliation. slipped and fell. states he called crisis because he did not like being in his jail. c o left ankle, knee and shoulder pain.; Reason: Trauma; with Pain; Clinical Question(s): Fracture COMPARISON: None. FINDINGS: Left lower leg fixation with intramedullary yane. Evidence of healing of fibular fracture and distaltibial fracture. No new ankle fracture identified. No foot fracture identified. Visualized joints are normal. Normal soft tissues. IMPRESSION: No acute fracture identified within the left lower leg. 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 WSN: [id number] Ordering Physician: Angelica Velasquez Dictated By: Ranjeet Hopkins MD Dictated Date/Time: 09/25/22 7:29 pm Reviewed By: Ranjeet Hopkins MD Signed By: Ranjeet Hopkins MD Signed Date/Time: 09/25/22 7:29 pm Transcribed By: EZEKIEL Transcribed Date/Time: 09/25/22 7:24 pm * Exam Date Time Procedure Performing Provider Status 09/25/22 7:12 PM Foot Min 3 Views Left Bryan Vega (Verified) Notes: (Foot Min 3 Views Left) Reason For Exam: Pain RESULT: Foot Min 3 Views Left Tibia/Fibula 2 Views Left, Foot Min 3 Views Left, Ankle Min 3 Views Left Hx of Present Illness: pt from jail, was frustrated with staff and went to bathroom on floor for retaliation. slipped and fell. states he called crisis because he did not like being in his jail. c o left ankle, knee and shoulder pain.; Reason: Trauma; with Pain; Clinical Question(s): Fracture COMPARISON: None. FINDINGS: Left lower leg fixation with intramedullary yane. Evidence of healing of fibular fracture and distaltibial fracture. No new ankle fracture identified. No foot fracture identified. Visualized joints are normal. Normal soft tissues. IMPRESSION: No acute fracture identified within the left lower leg. 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 WSN: [id number] Ordering Physician: Angelica Velasquez Dictated By: Ranjeet Hopkins MD Dictated Date/Time: 09/25/22 7:29 pm Reviewed By: Ranjeet Hopkins MD Signed By: Ranjeet Hopkins MD Signed Date/Time: 09/25/22 7:29 pm Transcribed By: EZEKIEL Transcribed Date/Time: 09/25/22 7:24 pm * Exam Date Time Procedure Performing Provider Status 09/25/22 7:12 PM Tibia/Fibula 2 Views Left Dang Vega ca; Auth (Verified) Notes: (Tibia/Fibula 2 Views Left) Reason For Exam: with Pain;Trauma RESULT: Tibia/Fibula 2 Views Left Tibia/Fibula 2 Views Left, Foot Min 3 Views Left, Ankle Min 3 Views Left Hx of Present Illness: pt from jail, was frustrated with staff and went to bathroom on floor for retaliation. slipped and fell. states he called crisis because he did not like being in his jail. c o left ankle, knee and shoulder pain.; Reason: Trauma; with Pain; Clinical Question(s): Fracture COMPARISON: None. FINDINGS: Left lower leg fixation with intramedullary yane. Evidence of healing of fibular fracture and distaltibial fracture. No new ankle fracture identified. No foot fracture identified. Visualized joints are normal. Normal soft tissues. IMPRESSION: No acute fracture identified within the left lower leg. 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 WSN: [id number] Ordering Physician: Angelica Velasquez Dictated By: Ranjeet Hopkins MD Dictated Date/Time: 09/25/22 7:29 pm Reviewed By: Ranjeet Hopkins MD Signed By: Ranjeet Hopkins MD Signed Date/Time: 09/25/22 7:29 pm Transcribed By: EZEKIEL Transcribed Date/Time: 09/25/22 7:24 pm Vital Signs Most recent to oldest [Reference Range]: 1 2 Oxygen Saturation [94-100 %] 98 % (09/25/22 8:30 PM) 98 % (09/25/22 6:27 PM) Pulse Rate [55-90 bpm] 88 bpm (09/25/22 8:30 PM) 88 bpm (09/25/22 6:27 PM) Blood Pressure [90-138/55-84 mm Hg] 149/ 98mm Hg *H* (09/25/22 8:30 PM) 151/100mm Hg *H* (09/25/22 6:27 PM) Respiratory Rate [16-30 br/min] 19 br/mi n (09/25/22 8:30 PM) 20 br/min (09/25/22 6:27 PM) Temperature [96.8-100.4 DegF] 97.7 DegF (09/25/22 6:27 PM) Mode of Delivery (Oxygen) Room air (09/25/22 8:30 PM) Room air (09/25/22 6:27 PM) Blood pressure sites Arm, left (09/25/22 8:30 PM) Arm, left (09/25/22 6:27 PM) Temperature Route Oral (09/25/22 6:27 PM) Social History Social History Type Response Tobacco Other: patient denie s use. Sex XR Ankle - left GE 3 Views * BHSPowerscribe , CIS S: TRANSCRIBE Ranjeet Hopkins MD S: VERIFY Event Display: Result: Authored Date: Tibia/Fibula 2 Views Left, Foot Min 3 Views Left, Ankle Min 3 Views Left Hx of Present Illness: pt from jail, was frustrated with staff and went to bathroom on floor for retaliation. slipped and fell. states he called crisis because he did not like being in his jail. c o left ankle, knee and shoulder pain.; Reason: Trauma; with Pain; Clinical Question(s): Fracture COMPARISON: None. FINDINGS: Left lower leg fixation with intramedullary yane. Evidence of healing of fibular fracture and distaltibial fracture. No new ankle fracture identified. No foot fracture identified. Visualized joints are normal. Normal soft tissues. IMPRESSION: No acute fracture identified within the left lower leg. 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 WSN: [id number] Ordering Physician: Angelica Velasquez Dictated By: Ranjeet Hopkins MD Dictated Date/Time: 09/25/22 7:29 pm Reviewed By: Ranjeet Hopkins MD Signed By: Ranjeet Hopkins MD Signed Date/Time: 09/25/22 7:29 pm Transcribed By: EZEKIEL Transcribed Date/Time: 09/25/22 7:24 pm XR Foot - left GE 3 Views * KIANASPowerscribe , CIS S: TRANSCRIRanjeet Wiggins MD: VERIFY Event Display: Result: Authored Date: Tibia/Fibula 2 Views Left, Foot Min 3 Views Left, Ankle Min 3 Views Left Hx of Present Illness: pt from jail, was frustrated with staff and went to bathroom on floor for retaliation. slipped and fell. states he called crisis because he did not like being in his jail. c o left ankle, knee and shoulder pain.; Reason: Trauma; with Pain; Clinical Question(s): Fracture COMPARISON: None. FINDINGS: Left lower leg fixation with intramedullary yane. Evidence of healing of fibular fracture and distaltibial fracture. No new ankle fracture identified. No foot fracture identified. Visualized joints are normal. Normal soft tissues. IMPRESSION: No acute fracture identified within the left lower leg. 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 WSN: [id number] Ordering Physician: Angelica Velasquez Dictated By: Ranjeet Hopkins MD Dictated Date/Time: 09/25/22 7:29 pm Reviewed By: Ranjeet Hopkins MD Signed By: Ranjeet Hopkins MD Signed Date/Time: 09/25/22 7:29 pm Transcribed By: EZEKIEL Transcribed Date/Time: 09/25/22 7:24 pm XR Tibia and Fibula - left 2 Views * KIANASPowertuan , CIS S: Ranjeet Horta MD: VERIFY Event Display: Result: Authored Date: Tibia/Fibula 2 Views Left, Foot Min 3 Views Left, Ankle Min 3 Views Left Hx of Present Illness: pt from jail, was frustrated with staff and went to bathroom on floor for retaliation. slipped and fell. states he called crisis because he did not like being in his jail. c o left ankle, knee and shoulder pain.; Reason: Trauma; with Pain; Clinical Question(s): Fracture COMPARISON: None. FINDINGS: Left lower leg fixation with intramedullary yane. Evidence of healing of fibular fracture and distaltibial fracture. No new ankle fracture identified. No foot fracture identified. Visualized joints are normal. Normal soft tissues. IMPRESSION: No acute fracture identified within the left lower leg. 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 WSN: [id number] Ordering Physician: Angelica Velasquez Dictated By: Ranjeet Hopkins MD Dictated Date/Time: 09/25/22 7:29 pm Reviewed By: Ranjeet Hopkins MD Signed By: Ranjeet Hopkins MD Signed Date/Time: 09/25/22 7:29 pm Transcribed By: EZEKIEL Transcribed Date/Time: 09/25/22 7:24 pm Patient Care team information Care Team Personnel Name: Erinn Bowen RN Position: S RN Member Role: Primary Care Nurse Name: Yamileth Lopez RN Position: S RN Member Role: Primary Care Nurse Name: Irina Baugh RN Position: S RN Member Role: Primary Care Nurse Name: Darien Beasley DO Position: [facility] Physician (General Medicine) Member Role: PCP Address: Address: [address] [place], [place] [id number]- Name: Sadia Tirado RN Position: S RN Member Role: Primary Care Nurse Name: Kong Duke RN Position: S RN Member Role: Primary Care Nurse Name: Yamini Molina RN Position: S RN Member Role: Primary Care Nurse Name: Isabella Drake RN Position: S RN Supv Member Role: Primary Care Nurse Name: Jamila Larkin RN Position: S RN Member Role: Primary Care Nurse Name: Justin Crocker RN Position: S RN Member Role: Primary Care Nurse Name: Nathan Roper RN Position: S RN Member Role: Primary Care Nurse Name: Yamini Chavez RN Position: S RN Member Role: Primary Care Nurse Name: Michelle Grayson RN Position: [facility] RN Member Role: Primary Care Nurse Name: Georgia Lopez MD Position: [facility] ED Medicine MD Member Role: Admitting Physician Address: Address: [address] [place] [address] Name: Angelica Velasquez MD Position: [facility] Resident Member Role: ED Resident Address: Address: [address] [place] [address] Name: Georgia Elmore Position: [facility] ED TA [facility] Name: Mohinder Law RN Position: [facility] ED RN W/OE and Tasks Member Role: Patient Care Provider
--- OUTSIDE RECORDS SUMMARY | 2024-02-06 19:06 | XMS_ITS | Continuity of Care Document ---
Author Organization [facility] Address [address] [place] [address]- Care Team Providers Care Esthetician/Skin Therapist Name Role Phone Darien Beasley DO Primary Care Physician Encounter [facility] Date(s): 01/30/22 - 02/03/[address] [address] Discharge Disposition: A-D/C Home Attending Physician: Miladis Duffy DO Admitting Physician: Bibi Nguyen MD Referring Physician: Not on Staff, Referring MD Allergies, Adverse Reactions, Alerts Substance Reaction Severity Status Bee Stings Active Immunizations Given and Recorded Vaccine Date Status Refusal Reason SARS-CoV-2 (COVID-19) mRNA BNT-162b2 vac 08/16/21 Recorded SARS-CoV-2 (COVID-19) mRNA BNT-162b2 vac 12/01/20 Recorded SARS-CoV-2 (COVID-19) mRNA BNT-162b2 vac 11/10/20 Recorded Medications BuSpar 10 mg oral tablet 5 mg, By Mouth, 2 times a day, # 90 tablet, Refills 0, Maintenance, 01/16/22 17:40:00 EDT, Partial fill upon patient request if the prescription is for a schedule II opioid drug. Start Date: 01/16/22 Status: Ordered Depakote 125 mg oral enteric coated tablet 1 tablet = 125 mg, By Mouth, 2 times a day, # 60 tablet, 0 Refills, Maintenance, 02/03/22 11:32:00 EDT, Tablet, [facility], Partial fill upon patient request if the prescription is for a schedule II opioid drug., 183, cm, 02/03/22 8:21:00 EDT, Height,... Start Date: 02/03/22 Status: Ordered LaMICtal 200 mg oral tablet 1 tablet = 200 mg, By Mouth, 2 times a day, # 180 tablet, 0 Refills, Maintenance, 05/20/20 21:33:00EDT, Tablet Start Date: 05/20/20 Status: Ordered LORazepam 1 mg oral tablet 1 tablet = 1 mg, By Mouth, 3 times a day, PRN Anxiety, agitation, # 10 tablet, 0 Refills, Acute 02/04/22 10:00:00 EDT, 02/03/22 11:32:00 EDT, Tablet, [facility], Partial fill upon patient request if the prescription is for a schedule II opioid drug.,... Start Date: 02/03/22 Stop Date: 02/04/22 Status: Ordered metroNIDAZOLE 500 mg oral tablet 1 tablet = 500 mg, By Mouth, 2 times a day, for 4 days, # 8 tablet, 0 Refills, Acute 02/07/22 8:24:00 EDT, 02/03/22 8:24:00 EDT, Tablet, [facility], Partial fill upon patient request if the prescription is for a schedule II opioid drug., 183, cm, 01/07... Start Date: 02/03/22 Stop Date: 02/07/22 Status: Ordered PriLOSEC OTC 20 mg oral delayed release tablet 1 tablet = 20 mg, By Mouth, Daily, # 30 tablet, 0 Refills, Maintenance, 05/20/20 21:32:00 EDT, CR Tablet Start Date: 05/20/20 Status: Ordered Problem List Condition Effective Dates Status Health Status Inform ant Major depression(Confirmed) Active Traumatic brain injury(Confirmed) Active Results Radiology Reports * Exam Date Time Procedure Performing Provider Status 02/02/22 3:30 PM Chest 2 Views Frontal and Lat Rodolfo Alvarado; Auth (Verified) Notes: (Chest 2 Views Frontal and Lat) Reason For Exam: Cough RESULT: Chest 2 Views Frontal and Lat Chest 2 Views Frontal and Lat Reason: Cough; Clinical Question(s): Pneumonia; Order Comment: has COVID COMPARISON: Prior chest regressed dated January 30, 2022. FINDINGS: LINES AND TUBES: None. LUNGS AND PLEURA: Clear lungs. Normal pulmonary vascularity. No pleural effusion. No pneumothorax. HEART, MEDIASTINUM AND CARL: Heart is normal in size. Normal upper mediastinal and hilar contour. BONES AND SOFT TISSUES: No acute abnormality. IMPRESSION: No acute abnormality. WSN: [id number] Ordering Physician: Miladis Duffy Dictated By: Eron Killian MD Dictated Date/Time: 02/02/22 3:44 pm Reviewed By: Eron Killian MD Signed By: Eron Killian MD Signed Date/Time: 02/02/22 3:44 pm Transcribed By: EZEKIEL Transcribed Date/Time: 02/02/22 3:41 pm * Exam Date Time Procedure Performing Provider Status 01/31/22 12:00 AM Chest Portable Joela Valerioa; Aut h (Verified) Notes: (Chest Portable) Reason For Exam: Cough RESULT: Chest Portable Chest Portable Reason: Cough; Clinical Question(s): Pneumonia COMPARISON: None. FINDINGS: LINES AND TUBES: None. LUNGS AND PLEURA: Clear lungs. Normal pulmonary vascularity. No pleural effusion. No pneumothorax. HEART, MEDIASTINUM AND CARL: Heart is normal in size. Normal upper mediastinal and hilar contour. BONES AND SOFT TISSUES: No acute abnormality. Minimal elevation of the right hemidiaphragm. IMPRESSION: No acute abnormality. WSN: [id number] Ordering Physician: Rick Gamble Dictated By: Nathan Hall MD Dictated Date/Time: 01/31/22 9:25 am Reviewed By: Nathan Hall MD Signed By: Nathan Hall MD Signed Date/Time: 01/31/22 9:25 am Transcribed By: EZEKIEL Transcribed Date/Time: 01/31/22 9:24 am Vital Signs Most recent to oldest [Reference Range]: 1 2 3 Height 183 cm (02/03/22 12:07 PM) 183 cm (02/03/22 8:21 AM) 183 cm (02/03/22 4:00 AM) Weight 82 kg (01/30/22 10:29 PM) Oxygen Saturation [94-100 %] 98 % (02/03/22 12:07 PM) 98 % (02/03/22 8:21 AM) 97 % (02/03/22 4:00 AM) Pulse Rate [55-90 bpm] 69 bpm (02/03/22 12:07 PM) 71 bpm (02/03/22 8:21 AM) 62 bpm (02/03/22 4:00 AM) Body Mass Index [18.5-24.99] 24.49 (01/30/22 10:29 PM) Blood Pressure [90-138/55-84 mm Hg] 131/83mm Hg (02/03/22 12:07 PM) 123/76mm Hg (02/03/22 8:21 AM) 116/86mm Hg (02/03/22 4:00 AM) Respiratory Rate [16-30 br/min] 18 br/min (02/03/22 3:37 PM) 16 br/min (02/03/22 12:07 PM) 16 br/min (02/03/22 8:21 AM) Temperature [96.8-100.4 DegF] 99.0 DegF (02/03/22 12:07 PM) 98.1 DegF (02/03/22 8:21 AM) 96.9 DegF (02/03/22 4:00 AM) Mode of Delivery (Oxygen) Room air (02/03/22 12:07 PM) Room air (02/03/22 8:21 AM) Room air (02/03/22 4:00 AM) Blood pressure sites Arm, left (02/03/22 12:07 PM) Arm, left (02/03/22 8:21 AM) Arm, left (02/03/22 4:00 AM) Temperature Route Oral (02/03/22 12:07 PM) Oral (02/03/22 8:21 AM) Temporal (02/03/22 4:00 AM) Dry Weight 82 kg (01/30/22 10:29 PM) Weight Obtained Via Standing scale (01/30/22 10:29 PM) Social History Social History Type Response Smoking Status Never (less than 100 in lifetime) entered on: 05/20/20 Sex
--- NOTE | 2024-02-06 21:50 | PC.NURSE ---
Update given to Ana Rosa
--- NOTE | 2024-02-06 23:13 | ED_ITS ---
HPI - General Adult General Chief complaint: General Medical Stated complaint: from [facility], deconditioning, frequent falls, Time Seen by Provider: 02/06/24 23:13 History of Present Illness HPI narrative: The patient is a 38-year-old male who was admitted to [facility] 6 days ago on January 30. I believe he had been seen at [facility] Emergency room and was then transferred to [facility]. The patient normally lives in a alf. He had been sent to the emergency room because of increased agitation at the alf. He was apparently medically cleared at the other emergency room prior to admission to [facility]. On arrival at [facility] he was wearing a tall walking boot on his left leg. The patient was very vague as to the details of why he needed the walking boot and the H&P which came with him from [facility] did not define any definite injury except to indicate that the patient was using a walker, that he was considered weightbearing as tolerated with a walker, and that he should follow up in 2 weeks with [facility]. The patient was sent to the emergency room today from [facility] because staff at [facility] felt the patient has ability to walk was worse and they thought that he seemed more confused. Additionally they felt that he was having frequent falls and that he He was therefore sent to the emergency room for medical evaluation. I spoke to the patient he was not able to give much additional history. He could not tell me why he was wearing the orthopedic boot. He is denying feeling unwell however and requested that he return to the psychiatric facility. He said that he was having difficulty urinating because he had trouble making it to the toilet and time. He also said that he felt he had to push harder to urinate than usual There is no report of fever, sweats, chills. No report of cough or sputum. No report of abdominal pain, nausea, vomiting. No report of diarrhea. Related Data Home Medications ?Medication ?Instructions ?Recorded ?Confirmed benzoyl peroxide 5 % topical gel 1 ea topical BID PRN Acne flare 05/06/22 05/06/22 (Acne Medication) divalproex 500 mg tablet,delayed 1 tab PO DAILY 05/06/22 05/06/22 release divalproex 500 mg tablet,delayed 2 tab PO BEDTIME 05/06/22 05/06/22 release hydroxyzine HCl 50 mg tablet 1 tab PO Q6H PRN Agitation 05/06/22 05/06/22 multivitamin (One Daily 1 tab PO DAILY 05/06/22 05/06/22 Multivitamin tablet) omeprazole 20 mg capsule,delayed 1 cap PO DAILY@0630 05/06/22 05/06/22 release Previous Rx's ?Medication ?Instructions ?Recorded epinephrine 0.3 mg/0.3 mL 0.3 mg (0.3 mL) IM Q4H PRN 06/04/23 injection, auto-injector (EpiPen anaphylaxis #2 ea 2-Titus) Allergies Allergy/AdvReac Type Severity Reaction Status Date / Time bee pollen [bee stings] AdvReac Hives Verified 02/06/24 17:29 Review of Systems 2 Review of Systems: Yes all other systems are reviewed and are negative [facility] Social History Social History Advance Directives: No Advance Directives Information Provided: No Physical Exam ED Vital Signs: Vital Signs - 24 hr 02/06/24 17:23 02/06/24 18:30 Temperature 97.8 F 98 F Pulse Rate 83 74 Respiratory Rate 16 18 Blood Pressure 119/72 110/56 L Pulse Oximetry 97 95 Oxygen Delivery Method Room Air Room Air BMI result Body Mass Index 35.8 Const Other: The patient is a somewhat chronically ill-appearing 38-year-old who was awake and did not seem in distress. He had a vague demeanor. HENMT Other: Face is symmetrical. Mucous membranes moist. Eyes Other: Pupils are round equal, conjunctivae clear Neck Other: No JVD, moving his neck easily Resp Effort & Inspection: normal respiratory effort Auscultation: clear to auscultation bilaterally Cardio Rate: regular rate Rhythm: regular rhythm Heart sounds: S1 normal heart sound present and S2 normal heart sound present GI Other: Abdomen was soft and nontender Skin Other: Skin is intact, dry and unremarkable Neuro Other: The patient was awake. He had a vague demeanor. Face was symmetrical. No dysarthria. Eye movements intact. Cranial nerves were intact. He has symmetrical strength in the upper and lower extremities. Extrem Other: The patient was wearing a tall orthopedic boot on his left foot, ankle, and lower leg. This was removed. He has old surgical scars at the left ankle consistent with previous orthopedic surgery. The scars are well healed and looks as if the surgery was quite removed. Skin of the foot is intact. It was able to move the left ankle well and does not seem obviously tender at the ankle or the foot. No calf swelling or tenderness. Calves benign Medical Decision Making Medical Decision Making MDM Narrative: The patient is a 38-year-old male with a history of a traumatic brain injury, a seizure disorder, and history of a mood disorder who was hospitalized at a psychiatric inpatient unit 6 days ago. Today staff at the psychiatric facility felt the patient is behavior had changed and that he seemed to be having more trouble walking and having trouble controlling his urine. He was sent to the emergency room for evaluation. Here the patient's workup shows a white count of 6.4, hemoglobin 13.9, and an unremarkable differential showing 48% neutrophils, 36% lymphocytes, and 13% monocytes. Metabolic panel shows normal electrolytes and normal renal function. LFTs were unremarkable. An x-ray of his left foot shows subacute fractures of the distal metatarsals of the 3rd, 4th, and 5th metatarsals. There is also a slightly displaced intra-articular fracture at the base of the proximal phalanx of the big toe. Despite these injuries his foot exam is relatively benign. Given the report of urinary difficulties I asked for a bladder scan. A bladder scan shows 860 mL of urine. The patient was given a urinal and encouraged to urinate. He ultimately was able to void spontaneously. He voiced large amount of urine. A postvoid bladder scan was done. The postvoid bladder scan shows no residual urine. The patient has a negative head CT and other labs are unremarkable. Overall I am not finding any acute medical decompensation. At this point the plan and will be for the patient to undergo a trial of ambulation. I think he can walk well he can likely returned to his psychiatric facility. Lab Data 02/07/24 03:06 02/07/24 03:06 Labs: Lab Results 02/07/24 02/07/24 Range/Units 03:06 04:04 WBC 6.4 (4.8-10.8) X10*3/uL RBC 4.20 L (4.60-5.80) X10*6/uL Hgb 13.9 L (14.0-18.0) g/dl Hct 40.4 L (42.0-52.0) % MCV 96.2 (80.0-98.0) fL MCH 33.1 H (27.0-33.0) pg MCHC 34.4 (31.0-36.0) g/dl RDW 12.7 (11.0-16.0) % Plt Count 153 L (160-400) X10*3/uL MPV 9.8 (9.4-12.4) fL Immature Gran % (Auto) 1.1 H (0.0-0.4) % Neut % (Auto) 48.3 (45-73) % Lymph % (Auto) 35.9 (20-40) % [place] % (Auto) 13.0 H (2-11) % Eos % (Auto) 1.4 (0-4) % Baso % (Auto) 0.3 (0-2) % Lymph # (Auto) 2.3 (1.2-4.9) X10*3/uL [place] # (Auto) 0.8 (0.1-1.2) X10*3/uL Eos # (Auto) 0.1 (0.0-0.4) X10*3/uL Baso # (Auto) 0.0 (0.0-0.2) X10*3/uL Abs Immat Gran (auto) 0.07 H (0.00-0.03) X10*3/uL Absolute Neuts (auto) 3.1 (2.0-8.3) x10*3/uL Absolute Nucleated RBC 0.000 (0.0-0.012) X10*3/uL Nucleated RBC % (auto) 0.0 (0.0-0.2) /100WBC Sodium 140 (135-145) mmol/L Potassium 3.9 (3.3-5.1) mmol/L Chloride 103 (96-108) mmol/L Carbon Dioxide 27 (22-29) mmol/L Anion Gap 14 (12-20) BUN 15 (9-16) mg/dL Creatinine 0.99 (0.5-1.4) mg/dL Estim Creat Clear Calc 133.8 Estimated GFR > 60 Random Glucose 101 (60-115) mg/dL Calcium 9.7 (8.4-10.2) mg/dL Total Bilirubin 0.2 (0.0-1.0) mg/dL Direct Bilirubin < 0.2 (0.0-0.5) mg/dL AST 36 (5-37) U/L ALT 43 H (0-40) U/L Alkaline Phosphatase 78 (39-117) U/L Total Protein 7.0 (6.5-8.0) g/dL Albumin 3.9 (3.5-5.0) g/dL Urine Color Yellow Urine Appearance Clear Urine pH 7.0 (5.0-9.0) Ur Specific Brilliant 1.025 (1.005-1.025) Urine Protein Negative (Neg-Trace) mg/dL Urine Glucose (UA) Negative (Negative) mg/dL Urine Ketones Trace (Negative) mg/dL Urine Blood Negative (Negative) Urine Nitrite Negative (Negative) Ur Leukocyte Esterase Negative (Negative) Urine Opiates Screen Not Detected (Not Detect) Ur Buprenorphine Scrn Not Detected (Not Detect) ng/mL Ur Oxycodone Screen Not Detected (Not Detect) ng/mL Urine Methadone Screen Not Detected (Not Detect) ng/mL Urine Fentanyl Screen Not Detected (Not Detect) Ur Barbiturates Screen Not Detected (Not Detect) Valproic Acid 48.3 L (50.0-100.0) mcg/mL Ur Phencyclidine Scrn Not Detected (Not Detect) Ur Amphetamines Screen Not Detected (Not Detect) U Benzodiazepines Scrn Not Detected (Not Detect) Urine Cocaine Screen Not Detected (Not Detect) U Marijuana (THC) Screen Not Detected (Not Detect) Ethyl Alcohol < 10 mg/dL Discharge Plan Discharge Clinical Impression: Difficulty walking, Urinary retention, Fracture of metatarsal of left foot, closed, Closed fracture of left great toe, Mood disorder, History of traumatic brain injury Patient Disposition: Still a Patient Prescriptions: No Action multivitamin [One Daily Multivitamin] Tablet 1 tab PO DAILY benzoyl peroxide [Acne Medication] 5 % gel 1 ea topical BID PRN (Reason: Acne flare) Rx Instructions: to face hydroxyzine HCl 50 mg tablet 1 tab PO Q6H PRN (Reason: Agitation) divalproex 500 mg tablet,delayed release (DR/EC) 1 tab PO DAILY divalproex 500 mg tablet,delayed release (DR/EC) 2 tab PO BEDTIME omeprazole 20 mg capsule,delayed release(DR/EC) 1 cap PO DAILY@0630 epinephrine [EpiPen 2-Titus] 0.3 mg/0.3 mL auto-injector 0.3 mg IM Q4H PRN (Reason: anaphylaxis) Qty: 2 0RF Print Language: Ethiopian
--- NOTE | 2024-02-07 00:17 | ECG_ITS ---
Test Reason : SOB Blood Pressure : / mmHG Vent. Rate : 082 BPM Atrial Rate : 082 BPM P-R Int : 168 ms QRS Dur : 092 ms QT Int : 370 ms P-R-T Axes : 055 056 060 degrees QTc Int : 432 ms Normal sinus rhythm Normal ECG No previous ECGs available Referred By: Javi Orellana Electronically Signed By:ANALILIA CHEN
[2024-02-07 03:09] LABS: MANUAL DIFF FLAG NO
[2024-02-07 03:11] LABS: Basophils Percent Auto 0.3 % (0-2); Eosinophils Absolute Auto 0.1 X10*3/uL (0.0-0.4); Eosinophils Percent Auto 1.4 % (0-4); Hematocrit 40.4 % (42.0-52.0); Hemoglobin 13.9 g/dl (14.0-18.0); Imm Gran Abs Auto 0.07 X10*3/uL (0.00-0.03); Imm Gran Pct Auto 1.1 % (0.0-0.4); Lymphocytes Absolute Auto 2.3 X10*3/uL (1.2-4.9); Lymphocytes Percent Auto 35.9 % (20-40); Mean Corpuscular HGB Conc 34.4 g/dl (31.0-36.0); Mean Corpuscular Hemoglobin 33.1 pg (27.0-33.0); Mean Corpuscular Volume 96.2 fL (80.0-98.0); Mean Platelet Volume 9.8 fL (9.4-12.4); Monocytes Absolute Auto 0.8 X10*3/uL (0.1-1.2); Neutrophils Absolute Auto 3.1 x10*3/uL (2.0-8.3); Neutrophils Percent Auto 48.3 % (45-73); Platelet Count 153 X10*3/uL (160-400); Red Cell Distribution Width 12.7 % (11.0-16.0); White Blood Count 6.4 X10*3/uL (4.8-10.8)
[2024-02-07 03:27] LABS: Alanine Aminotransferase 43 U/L (0-40); Albumin Level 3.9 g/dL (3.5-5.0); Alkaline Phosphatase 78 U/L (39-117); Anion Gap 14 (12-20); Aspartate Amino Transferase 36 U/L (5-37); Bilirubin Direct < 0.2 mg/dL (0.0-0.5); Bilirubin Total 0.2 mg/dL (0.0-1.0); Blood Urea Nitrogen 15 mg/dL (9-16); Calcium 9.7 mg/dL (8.4-10.2); Carbon Dioxide 27 mmol/L (22-29); Chloride 103 mmol/L (96-108); Creatinine Clr Calc Pharmacy 133.8; Estimated Glomerular Filt Rate > 60; Glucose Random 101 mg/dL (60-115); Potassium 3.9 mmol/L (3.3-5.1); Sodium 140 mmol/L (135-145)
[2024-02-07 03:28] LABS: Valproate 48.3 mcg/mL (50.0-100.0)
[2024-02-07 03:57] LABS: Ethanol < 10 mg/dL
[2024-02-07 04:11] LABS: Appearance Urine Clear; Color Urine Yellow; Glucose Urine UA Negative (Negative); Leukocyte Esterase Urine Negative (Negative); Nitrite Urine Negative (Negative); Specific Gravity - Urine 1.025 (1.005-1.025); Urine Blood Negative (Negative); Urine Ketones Trace mg/dL (Negative); Urine Protein Negative (Neg-Trace)
[2024-02-07 04:42] LABS: Amphetamine Screen Urine Not Detected (Not Detect); Barbiturates, Urine Not Detected (Not Detect); Benzodiazepines Screen Urine Not Detected (Not Detect); Buprenorphine Scr Not Detected (Not Detect); Cannabinoid Screen Urine Not Detected (Not Detect); Cocaine Screen Urine Not Detected (Not Detect); Fentanyl, urine Not Detected (Not Detect); Methadone Screen, Urine Not Detected (Not Detect); Opiate Screen Urine Not Detected (Not Detect); Oxycodone Screen Urine Not Detected (Not Detect); Phencyclidine Screen Urine Not Detected (Not Detect)
--- NOTE | 2024-02-07 05:15 | PC.NURSE ---
Assumed care of pt at 0345. report given to kerri
[2024-02-07 05:24] VITALS: BP 108/68; PULSE 74; RESP 16; TEMP 36.8; O2SAT 90
--- NOTE | 2024-02-07 07:49 | PC.NURSE ---
pt ambulated well with walking boot and walker.
== END 2024-02-07 09:21 ==
PROVIDERS: Emergency Medicine; Emergency Provider Emergency Medicine Emergency Medical Services; PCP Internal Medicine
DX: R26.2 Difficulty in walking, not elsewhere classified (principal); R33.9 Retention of urine, unspecified; S92.332D Displaced fracture of third metatarsal bone, left foot, subsequent encounter for fracture with routine healing; S92.342D Displaced fracture of fourth metatarsal bone, left foot, subsequent encounter for fracture with routine healing; S92.352D Displaced fracture of fifth metatarsal bone, left foot, subsequent encounter for fracture with routine healing; X58.XXXD Exposure to other specified factors, subsequent encounter; S92.412A Displaced fracture of proximal phalanx of left great toe, initial encounter for closed fracture; X58.XXXA Exposure to other specified factors, initial encounter; F06.30 Mood disorder due to known physiological condition, unspecified; Z87.820 Personal history of traumatic brain injury; R45.1 Restlessness and agitation; R53.81 Other malaise; R29.6 Repeated falls; G40.909 Epilepsy, unspecified, not intractable, without status epilepticus; F63.81 Intermittent explosive disorder; Y93.9 Activity, unspecified; Y92.9 Unspecified place or not applicable; Y99.9 Unspecified external cause status; Z91.81 History of falling; Z79.899 Other long term (current) drug therapy
CPT/HCPCS: 36415; 51798; 70450; 73630; 80048; 80076; 80164; 80307; 81003; 85025; 93005; 99284

== ENCOUNTER → 2024-02-07 00:17 | Outpatient (BNV) | payer MEDICARE, MEDICAID, SELFPAY | PROVIDERS: Emergency Provider Emergency Medicine Emergency Medical Services; PCP Internal Medicine; Visit Provider Internal Medicine | DX: R06.02 Shortness of breath (principal) | CPT/HCPCS: 93010 ==